=== PATIENT | female | born 1980 | race Caucasian/White ===

== ENCOUNTER 2016-12-26 15:36 | Emergency (ER) | payer MEDICAID ==
[~2016-12-26] VITALS: Ht 157.5 cm; Wt 60.0 kg
[~2016-12-26 15:36] MED LIST: METH40TA PO; ZOFR4TAB3 SL
[2016-12-26 15:47] VITALS: BP 134/86; PULSE 80; RESP 24; TEMP 98.1; O2SAT 100
--- NOTE | 2016-12-26 16:01 | PD ---
Physical Exam Time Seen by Provider: 15:58 Narrative 36yo F c/o N, V, D after quitting methadone cold turkey 10 days ago. Has not slept in 5 days. Says she''ll be having thoughts of suicide if she doesn't get better. Also is c/o SOB. Hx of COPD. Denies chest pain, abd pain. Patient seen in triage. VS reviewed. Awaiting bed placement. Data Data Last Documented VS Vital Signs Date Time Temp Pulse Resp B/P Pulse Ox O2 Delivery O2 Flow Rate FiO2 12/26/16 15:47 98.1 80 24 134/86 100 Room Air MDM Supervised Visit with JESUS: Jacey Au December 26, 2016 16:01
== END 2016-12-26 17:52 | disposition left against medical advice (07) ==
LOC: NEDAMB 15:36
DX: R11.2 Nausea with vomiting, unspecified (principal)
CPT/HCPCS: 99281

== ENCOUNTER 2017-03-20 20:40 | Emergency (ER) | payer SELFPAY ==
[~2017-03-20] VITALS: Ht 157.5 cm; Wt 65.0 kg
[2017-03-20 20:43] VITALS: BP 173/97; PULSE 108; RESP 18; TEMP 97.5; O2SAT 97
[2017-03-20 22:02] VITALS: BP 192/111; PULSE 95; RESP 18; TEMP 98.6; O2SAT 100
[2017-03-20] MEDS ORDERED: SODIUM CHLOR 0.9% 1000 ML INJ 1,000 ML IV ONE (22:13)
[2017-03-20] MEDS ORDERED: ONDANSETRON HCL 4 MG/2 ML VIAL IVP ONE (22:15)
[2017-03-20] MEDS ORDERED: KETOROLAC TROMETHAMINE 30 MG/ML (IVP) VIAL IV PUSH ONE (22:15)
[2017-03-20] MEDS ORDERED: cefTRIAXone 250 MG VIAL IM ONE (22:15)
[2017-03-20] MEDS ORDERED: LIDOCAINE HCL 1% 50 ML VIAL IM ONE (22:15)
--- NOTE | 2017-03-20 22:28 | PD ---
HPI Chief Complaint: Abdominal Pain Time Seen by Provider: 22:06 Travel History International Travel<30 days: No Contact w/Intl Traveler<30days: No Traveled to known affect area: No History of Present Illness HPI A 36 year old female with an LMP of 03/16/17 presents to the emergency department for discharge and abdominal pain. The discharge started 5 days ago and is described as malodorous, thick, yellow, and cloudy. Approximately 3 days ago she began having lower abdominal pain and lower back pain. The pain is an 8/10 and is described as "labor pains". She tried some NSAID's which helped relieve the pain for a little but came in because it has gotten worse. She recently had unprotected sex. She denies fever, dysuria, urinary urgency or frequency, change in stool, or hematuria. She takes no medications and denies any medical problems. She smokes 1 pack a day and drinks occasionally. History Past Medical History Narrative Medical hx of Chlamydia 19 years ago LMP: 03/16/17 Menopausal: No : 10 Para: 7 Dilation and Curettage (D&C): Yes Past Surgical History Narrative Surgical cholecystectomy tubal ligation Social History Alcohol Use: Yes Tobacco Use: Yes (1 PPD) Allergies-Medications (Allergen,Severity, Reaction): Coded Allergies: adhesive (Unverified Adverse Reaction, Unknown, PT STATES NOT TRUE, ) Reported Meds & Prescriptions Reported Meds & Active Scripts Active No Active Prescriptions or Reported Medications Review of Systems General / Constitutional: No: Fever, Chills Cardiovascular: No: Chest Pain or Discomfort Respiratory: No: Shortness of Breath Gastrointestinal: Positive: Abdominal Pain, No: Nausea, Vomiting, Diarrhea, Changes in Bowel Habits Genitourinary: Positive: Pelvic Pain, Flank Pain, Discharge (thick and yellow) , No: Urgency, Frequency, Dysuria, Hematuria Physical Exam Narrative GENERAL: Well-nourished, well-developed patient. SKIN: Warm and dry. HEAD: Normocephalic. EYES: No scleral icterus. No injection or drainage. NECK: Supple, trachea midline. No JVD or lymphadenopathy. CARDIOVASCULAR: Regular rate and rhythm without murmurs, gallops, or rubs. RESPIRATORY: Breath sounds equal bilaterally. No accessory muscle use. GASTROINTESTINAL: Abdomen soft, minimal suprapubic tenderness. MUSCULOSKELETAL: No cyanosis, or edema. Abdominal: suprapubic tenderness, no rebound tenderness, no RLQ or RUQ tenderness BACK: Nontender without obvious deformity. Bilateral CVA tenderness Pelvic: External examination was unremarkable. Speculum examination reveals thick yellow to green vaginal discharge in the vaginal vault. Cervix is closed. No cervical motion tenderness. No adnexal tenderness. Data Data Last Documented VS Vital Signs Date Time Temp Pulse Resp B/P (MAP) Pulse Ox O2 Delivery O2 Flow Rate FiO2 03/20/17 22:02 98.6 95 18 192/111 (138) 100 Room Air Orders Orders Gc And Chlamydia Pcr (03/20/17 22:13) Wet Prep Profile (03/20/17 22:13) Urinalysis - C+S If Indicated (03/20/17 22:13) Sodium Chlor 0.9% 1000 Ml Inj (Ns 1000 M (03/20/17 22:13) Ondansetron Inj (Zofran Inj) (03/20/17 22:15) Ceftriaxone Inj (Rocephin Inj) (03/20/17 22:15) Lidocaine 1% Inj (50 Ml) (Xylocaine 1% I (03/20/17 22:15) Ketorolac Inj (Toradol Inj) (03/20/17 22:15) Ed Urine Pregnancytest Poc (03/20/17 22:16) Morphine Inj (Morphine Inj) (03/20/17 23:00) Azithromycin Powd Pack (Zithromax Powd P (03/20/17 23:15) Labs Laboratory Tests Test 03/20/17 22:30 03/20/17 22:40 Urine Color YELLOW Urine Turbidity HAZY Urine pH 5.5 Urine Specific [place] 1.018 Urine Protein NEG mg/dL Urine Glucose (UA) NEG mg/dL Urine Ketones NEG mg/dL Urine Occult Blood NEG Urine Nitrite NEG Urine Bilirubin NEG Urine Urobilinogen 2.0 MG/DL Urine Leukocyte Esterase LARGE Urine RBC 9 /hpf Urine WBC 8 /hpf Urine Squamous Epithelial Cells 3 /hpf Urine Amorphous Sediment RARE Urine Bacteria RARE /hpf Urine Mucus FEW /lpf Microscopic Urinalysis Comment CULT NOT INDICATED Clue Cells (Wet Prep) PRESENT Vaginal Trichomonas (Wet Prep) NONE SEEN Vaginal Yeast (Wet Prep) NONE SEEN MDM Medical Decision Making Medical Screen Exam Complete: Yes Emergency Medical Condition: Yes Medical Record Reviewed: Yes Interpretation(s) Laboratory Tests Test 03/20/17 22:30 03/20/17 22:40 Urine Color YELLOW Urine Turbidity HAZY Urine pH 5.5 Urine Specific [place] 1.018 Urine Protein NEG mg/dL Urine Glucose (UA) NEG mg/dL Urine Ketones NEG mg/dL Urine Occult Blood NEG Urine Nitrite NEG Urine Bilirubin NEG Urine Urobilinogen 2.0 MG/DL Urine Leukocyte Esterase LARGE Urine RBC 9 /hpf Urine WBC 8 /hpf Urine Squamous Epithelial Cells 3 /hpf Urine Amorphous Sediment RARE Urine Bacteria RARE /hpf Urine Mucus FEW /lpf Microscopic Urinalysis Comment CULT NOT INDICATED Clue Cells (Wet Prep) PRESENT Vaginal Trichomonas (Wet Prep) NONE SEEN Vaginal Yeast (Wet Prep) NONE SEEN Differential Diagnosis pelvic inflammatory disease, trichomonas, gonorrhea, chlamydia, nephrolithiasis , pyelonephritis, urinary tract infection Narrative Course UA was sent to lab and bedside UA test was obtained, was negative. UA is unremarkable. Wet prep is positive for clue cells consistent with bacterial vaginosis. The patient was covered with Rocephin 250 mg IM and Zithromax 1 g by mouth. The patient will be discharged home on Flagyl 500 mg twice a day. She is advised to follow-up with a primary physician. Diagnosis Primary Impression: Bacterial vaginosis Patient Instructions: General Instructions Additional Instructions: Medications as directed. Follow-up with your primary physician. Return if symptoms worsen or progress. No drinking alcohol while on Flagyl. Med/Other Pt SpecificInfo: Prescription(s) given Scripts Metronidazole (Flagyl) 500 Mg Tab 500 MG PO BID for Infection for 7 Days, TAB 0 Refills Prov: Sukhdeep Rojas MD 03/20/17 Disposition: 01 DISCHARGE HOME Condition: Stable Sukhdeep Rojas MD Mar 20, 2017 22:28
[2017-03-20 22:52] LABS: BACTERIA, URINE RARE /hpf; BLOOD, URINE NEG (NEG); COMMENT (UR) CULT NOT INDICATED; CULTURE IF INDICATED CULT NOT INDICATED; GLUCOSE,URINE NEG (NEG); KETONE, URINE NEG (NEG); MUCUS URINE FEW /lpf (OCC); NITRITE,URINE NEG (NEG); PH, URINE 5.5 (5.0-8.5); SQUAMOUS EPITHELIAL CELL URINE 3 /hpf (0-5); URINE COLOR YELLOW (YELLW/STRAW)
[2017-03-20] MEDS ORDERED: MORPHINE SULFATE 4 MG/ML INJ IV PUSH ONE (23:00)
[2017-03-20] MEDS ORDERED: AZITHROMYCIN PWD FOR SUSP 1 GM PACKET PO ONE (23:15)
[2017-03-20] MEDS ORDERED: METR-1 PO (23:19)
[2017-03-21 00:49] LABS: CHLAMYDIA PCR NOT DETECTED (NOT DETECT); NEISSERIA PCR DETECTED (NOT DETECT)
== END 2017-03-21 00:06 | disposition home or self-care (01) ==
LOC: NEPE 20:40
DX: N76.0 Acute vaginitis (principal); F17.210 Nicotine dependence, cigarettes, uncomplicated
CPT/HCPCS: 81001; 87210; 87491; 87591; 96372; 96374; 96375; 99284; J0696; J1885; J2270; J2405; J7030

== ENCOUNTER 2017-06-27 00:35 | Emergency (ER) | payer SELFPAY ==
[~2017-06-27 00:35] MED LIST changes: -METH40TA PO; +METR-1 PO; -ZOFR4TAB3 SL
[2017-06-27 00:36] VITALS: BP 150/89; PULSE 121; RESP 15; TEMP 98.1; O2SAT 100
== END 2017-06-27 02:15 | disposition left against medical advice (07) ==
LOC: NEPC 00:35
DX: Z04.8 Encounter for examination and observation for other specified reasons (principal)
CPT/HCPCS: 99281

== ENCOUNTER 2017-08-21 17:05 | Inpatient (IN) | payer MEDICAID ==
[~2017-08-21] VITALS: Ht 157.5 cm; Wt 56.8 kg
[2017-08-21 17:07] VITALS: BP 192/137; PULSE 96; RESP 14; TEMP 98.1; O2SAT 100
--- NOTE | 2017-08-21 17:43 | RADRPT ---
EXAM DATE/TIME: 08/21/2017 17:25 [facility] COMPARISON: No previous studies available for comparison. INDICATIONS : Right wrist pain after patient punched a window 3 days ago MEDICAL HISTORY : None. SURGICAL HISTORY : Prior fracture to 5th metacarpal ENCOUNTER: Initial ACUITY: 3 days PAIN SCORE: 5/10 LOCATION: Right entire wrist FINDINGS: Three view examination of the right wrist demonstrates no soft tissue swelling, dislocation, or fract ure. The carpal bones are in normal alignment. The joint spaces are maintained. Bony mineralizatio n is normal. CONCLUSION: Negative for fracture or dislocation. Follow up in 7-10 days is suggested if symptoms persist. Tino Quinones MD FACR on August 21, 2017 at 17:40 Board Certified Radiologist. This report was verified electronically.
--- NOTE | 2017-08-21 17:44 | RADRPT ---
EXAM DATE/TIME: 08/21/2017 17:26 [facility] COMPARISON: No previous studies available for comparison. INDICATIONS : Laceration, swelling to to right forearm after patient punched a window 3 days ago MEDICAL HISTORY : None. SURGICAL HISTORY : None. ENCOUNTER: Initial ACUITY: 3 days PAIN SCORE: 10/10 LOCATION: Right mis-shaft forearm FINDINGS: Soft tissue swelling and laceration. Small radiopacity is present distal end of the swelling probabl y glass. Fracture is not appreciated. CONCLUSION: Retained foreign body as above. Tino Quinones MD FACR on August 21, 2017 at 17:41 Board Certified Radiologist. This report was verified electronically.
[2017-08-21 18:04] LABS: AUTOMATED NEUTROPHIL # 12.7 TH/MM3 (1.8-7.7); BASOPHIL # 0.1 TH/MM3 (0-0.2); BASOPHIL % 0.5 % (0.0-2.0); EOSINOPHIL # 0.1 TH/MM3 (0-0.4); EOSINOPHIL % 0.8 % (0.0-4.0); HEMATOCRIT 46.9 % (35.0-46.0); HEMOGLOBIN 15.9 GM/DL (11.6-15.3); LYMPH % 14.3 % (9.0-44.0); LYMPHOCYTE # 2.3 TH/MM3 (1.0-4.8); MEAN CELL VOLUME 94.7 FL (80.0-100.0); MEAN CORPUSCULAR HGB CONC 33.8 % (32.0-36.0); MEAN PLATELET VOLUME 9.1 FL (7.0-11.0); MONO % 5.2 % (0.0-8.0); MONOCYTE # 0.8 TH/MM3 (0-0.9); NEUT % 79.2 % (16.0-70.0); PLATELET COUNT 276 TH/MM3 (150-450); RED BLOOD COUNT 4.95 MIL/MM3 (4.00-5.30); RED CELL DISTRIBUTION WIDTH 13.2 % (11.6-17.2); WHITE BLOOD COUNT 16.1 TH/MM3 (4.0-11.0)
[2017-08-21 18:22] LABS: BICARBONATE 24.8 MEQ/L (21.0-32.0); CREATININE 0.76 MG/DL (0.50-1.00)
--- NOTE | 2017-08-21 18:27 | PD ---
HPI Chief Complaint: Skin Problem Time Seen by Provider: 18:17 Travel History International Travel<30 days: No Contact w/Intl Traveler<30days: No Traveled to known affect area: No History of Present Illness HPI 37yo F with no significant PMH presents to the ED with c/o right arm pain and swelling since yesterday. Said she punched her right arm through the window 5 days ago and did not seek medical care. Said pain was just localized to the laceration initially. Denies any fever, chest pain, sob, n/v, abdominal pain, focal weakness or numbness. PFSH Past Medical History Hx Anticoagulant Therapy: No Arthritis: No Asthma: No Autoimmune Disease: No Blood Disorders: No Bipolar Disorder: Yes Anxiety: Yes Depression: Yes Heart Rhythm Problems: No Cancer: No Cardiovascular Problems: No High Cholesterol: No Chemotherapy: No Chest Pain: No Congestive Heart Failure: No COPD: Yes Cerebrovascular Accident: No Diabetes: No Diminished Hearing: No Endocrine: No Gastrointestinal Disorders: Yes GERD: No Glaucoma: No Genitourinary: No Headaches: No Hepatitis: No Hiatal Hernia: No Immune Disorder: No Implanted Vascular Access Dvce: No Kidney Stones: No Musculoskeletal: No Neurologic: No Psychiatric: Yes Reproductive: Yes Respiratory: Yes (COPD) Migraines: No Myocardial Infarction: No Radiation Therapy: No Renal Failure: No Seizures: No Sickle Cell Disease: No Sleep Apnea: No Thyroid Disease: No Ulcer: No ?: Not LMP: 08/07/2017 Menopausal: No : 10 Para: 7 Miscarriage: 1 : 1 Dilation and Curettage (D&C): Yes Tubal Ligation: Yes Past Surgical History Abdominal Surgery: Yes AICD: No Appendectomy: No Arteriovenous Shunt: No Cardiac Surgery: No Cholecystectomy: Yes Ear Surgery: No Endocrine Surgery: No Eye Surgery: No Genitourinary Surgery: No Gynecologic Surgery: Yes (D&C AFTER MISCARRIAGE) Insulin Pump: No Joint Replacement: No Neurologic Surgery: No Oral Surgery: No Pacemaker: No Thoracic Surgery: No Other Surgery: Yes Social History Alcohol Use: Yes ("OCCASIONALLY") Tobacco Use: Yes (1 PPD) Substance Use: Yes (MARIJUANA) Allergies-Medications (Allergen,Severity, Reaction): Coded Allergies: adhesive (Unverified Adverse Reaction, Unknown, PT STATES NOT TRUE, ) Reported Meds & Prescriptions Reported Meds & Active Scripts Active No Active Prescriptions or Reported Medications Review of Systems Except as stated in HPI: all other systems reviewed are Neg Physical Exam Narrative GENERAL: 37yo F in moderate distress. SKIN: Focused skin assessment warm/dry. HEAD: Atraumatic. Normocephalic. CARDIOVASCULAR: Regular rate and rhythm. No murmur appreciated. RESPIRATORY: No accessory muscle use. Clear to auscultation. Breath sounds equal bilaterally. GASTROINTESTINAL: Abdomen soft, non-tender, nondistended. MUSCULOSKELETAL: RUE: +3cm that is healed mid forearm with surrounding edema and erythema. Tender to touch until below elbow. Sensation intact. +TTP right fifth metacarpal joint with some ecchymoses. NEUROLOGICAL: Awake and alert. No obvious cranial nerve deficits. Motor grossly within normal limits. Normal speech. PSYCHIATRIC: Appropriate mood and affect; insight and judgment normal. Data Data Last Documented VS Vital Signs Date Time Temp Pulse Resp B/P (MAP) Pulse Ox O2 Delivery O2 Flow Rate FiO2 08/21/17 19:13 82 20 175/94 (121) 100 Room Air 08/21/17 17:07 98.1 Orders Orders Complete Blood Count With Diff (08/21/17 17:13) Basic Metabolic Panel (Bmp) (08/21/17 17:13) Forearm (2vws) (08/21/17 ) Wrist, Complete ([id number]) (08/21/17 ) Blood Culture (08/21/17 18:23) Lactic Acid Sepsis Protocol (08/21/17 18:23) Us Soft Tissue (08/21/17 ) Hand, Limited (2vws) (08/21/17 ) Ketorolac Inj (Toradol Inj) (08/21/17 18:30) Clindamycin Inj (Cleocin Inj) (08/21/17 18:30) Sodium Chlor 0.9% 1000 Ml Inj (Ns 1000 M (08/21/17 18:30) Clindamycin 600 Mg/Ns Premix (Cleocin 60 (08/21/17 18:45) Labs Laboratory Tests Test 08/21/17 17:20 08/21/17 20:00 White Blood Count 16.1 TH/MM3 Red Blood Count 4.95 MIL/MM3 Hemoglobin 15.9 GM/DL Hematocrit 46.9 % Mean Corpuscular Volume 94.7 FL Mean Corpuscular Hemoglobin 32.0 PG Mean Corpuscular Hemoglobin Concent 33.8 % Red Cell Distribution Width 13.2 % Platelet Count 276 TH/MM3 Mean Platelet Volume 9.1 FL Neutrophils (%) (Auto) 79.2 % Lymphocytes (%) (Auto) 14.3 % Monocytes (%) (Auto) 5.2 % Eosinophils (%) (Auto) 0.8 % Basophils (%) (Auto) 0.5 % Neutrophils # (Auto) 12.7 TH/MM3 Lymphocytes # (Auto) 2.3 TH/MM3 Monocytes # (Auto) 0.8 TH/MM3 Eosinophils # (Auto) 0.1 TH/MM3 Basophils # (Auto) 0.1 TH/MM3 CBC Comment DIFF FINAL Differential Comment Blood Urea Nitrogen 9 MG/DL Creatinine 0.76 MG/DL Random Glucose 90 MG/DL Calcium Level 9.0 MG/DL Sodium Level 141 MEQ/L Potassium Level 4.3 MEQ/L Chloride Level 109 MEQ/L Carbon Dioxide Level 24.8 MEQ/L Anion Gap 7 MEQ/L Estimat Glomerular Filtration Rate 87 ML/MIN Lactic Acid Level 0.9 mmol/L [facility] Medical Decision Making Medical Screen Exam Complete: Yes Emergency Medical Condition: Yes Differential Diagnosis Abscess vs. foreign body retention vs. fracture vs. sepsis secondary to cellulitis Narrative Course 37yo F with right forearm pain and swelling since yesterday after punching her hand through the window 5 days ago. Labs reviewed, leukocytosis at 16.1. Lactic acid normal. Xray right hand negative. Xray right forearm showed small radiopacity distal end of the swelling probably glass. US soft tissue showed 13mm phlegmonous mass with probable early abscess formation. Xray right wrist negative. Pt given clindamycin, NS IVF and toradol. Pt reevaluate and still in pain so will give morphine. Discussed with Dr. López and accepted to her service. Diagnosis Primary Impression: Abscess of forearm, right Admitting Information Admitting Physician Requests: Admit Scripts No Active Prescriptions or Reported Meds Shannan Westfall DO Aug 21, 2017 18:27
[2017-08-21] MEDS ORDERED: KETOROLAC TROMETHAMINE 30 MG/ML (IVP) VIAL IV PUSH ONE (18:30)
[2017-08-21] MEDS ORDERED: CLINDAMYCIN INJ 600 MG in SODIUM CHLORIDE 0.9% INJ 100 ML IV ONE (18:30)
[2017-08-21] MEDS ORDERED: SODIUM CHLOR 0.9% 1000 ML INJ 1,000 ML IV ONE (18:30)
[2017-08-21] MEDS ORDERED: CLINDAMYCIN 600 MG/NS PREMIX 50 ML IV ONE (18:45)
--- NOTE | 2017-08-21 19:10 | RADRPT ---
EXAM DATE/TIME: 08/21/2017 18:37 [facility] COMPARISON: No previous studies available for comparison. INDICATIONS : Right hand pain after punching window 3 days ago MEDICAL HISTORY : Previous right 5th metacarpal fracture SURGICAL HISTORY : None. ENCOUNTER: Initial ACUITY: 3 days PAIN SCORE: 10/10 LOCATION: Right entire hand FINDINGS: Two view examination of the right hand demonstrates no soft tissue swelling, dislocation, or fracture . The joint spaces are maintained. Bony mineralization is normal. CONCLUSION: 1. No acute bony abnormality. Pablito Lucas MD on August 21, 2017 at 19:06 Board Certified Radiologist. This report was verified electronically.
[2017-08-21 19:13] VITALS: BP 175/94; PULSE 82; RESP 20; O2SAT 100
--- NOTE | 2017-08-21 20:17 | RADRPT ---
EXAM DATE/TIME: 08/21/2017 19:21 [facility] COMPARISON: No previous studies available for comparison. INDICATIONS : Right forearm, abscess. MEDICAL HISTORY : Chronic obstructive pulmonary disease. Hypertension. SURGICAL HISTORY : Tubal ligation. Cholecystectomy. Dilation and curettage. ENCOUNTER: Initial ACUITY: 4-6 days PAIN SCORE: 3/10 LOCATION: Right arm. AREA EVALUATED: Right forearm. FINDINGS: There is an approximately 13 mm phlegmonous mass in the right medial mid forearm with some fluid most characteristic of early abscess formation with surrounding cellulitis. CONCLUSION: 1. 13 mm phlegmonous mass with probable early abscess formation. Pablito Lucas MD on August 21, 2017 at 20:14 Board Certified Radiologist. This report was verified electronically.
[2017-08-21] MEDS ORDERED: MORPHINE SULFATE 2 MG/ML INJ IV PUSH ONE (21:00)
[2017-08-21] MEDS ORDERED: ACETAMINOPHEN 325 MG TAB PO PRN (21:15)
[2017-08-21] MEDS ORDERED: RESP: ALBUTEROL 2.5 MG/IPRATROPIUM 0.5 MG NEB (PRN) NEB (21:15)
[2017-08-21] MEDS ORDERED: SODIUM CHLORIDE 0.9% FLUSH 10 ML FLUSH IV FLUSH PRN (21:15)
[2017-08-21] MEDS ORDERED: NALOXONE HCL 0.4 MG/ML AMP IV PUSH PRN (21:15)
[2017-08-21] MEDS ORDERED: ONDANSETRON HCL 4 MG/2 ML VIAL IVP PRN (21:15)
[2017-08-22 00:03] VITALS: BP 169/83; PULSE 86; RESP 18; TEMP 97.8; O2SAT 100
[2017-08-22] MEDS: MORPHINE SULFATE 2 MG/ML INJ IV PUSH PRN ×6 (00:07→16:32)
--- NOTE | 2017-08-22 01:33 | HHI.HP ---
[facility] No Primary Care Physician Admission Diagnosis Right forearm abscess Diagnoses: Travel History International Travel<30 Days: No Contact w/Intl Traveler <30 Da: No Traveled to Known Affected Are: No History of Present Illness 37-year-old female presents to the emergency department for evaluation of a right forearm laceration and swelling. The patient reports that approximately 5 days ago she put her hand through a window. She sustained a 3 cm laceration on the right forearm and did not seek medical attention. She reports that she had increasing pain and swelling that began 2 days ago. The pain worsened to the point where it became unbearable and she came to the emergency department for evaluation. She endorses a subjective low-grade fever for the past 2 days. She reports no drainage from the wound. Review of Systems Positive subjective fevers Denies blurry vision, otorrhea, rhinorrhea Denies sore throat and cough No chest pain, palpitations No shortness of breath or wheezing No abdominal pain Denies constipation/diarrhea/nausea/vomiting Denies muscle pain Denies focal weakness No rashes Past Family Social History Past Medical History None Past Surgical History Cholecystectomy BTL Frenulum release D&C Reported Medications Reported Meds & Active Scripts Active No Active Prescriptions or Reported Medications Allergies: Coded Allergies: adhesive (Unverified Adverse Reaction, Unknown, PT STATES NOT TRUE, ) Family History Negative for CAD/DM Social History Smokes approximately one pack per day. Occasional alcohol and marijuana use. Denies other illicit drugs. Physical Exam Vital Signs Vital Signs Date Time Temp Pulse Resp B/P (MAP) Pulse Ox O2 Delivery O2 Flow Rate FiO2 08/22/17 00:03 97.8 86 18 169/83 (111) 100 08/21/17 21:50 08/21/17 19:13 82 20 175/94 (121) 100 Room Air 08/21/17 17:07 98.1 96 14 192/137 (155) 100 Physical Exam GENERAL: female sitting up in bed SKIN: 3 cm laceration on the lateral aspect of the right forearm with surrounding erythema and edema. No fluctuance palpated. HEAD: Atraumatic. Normocephalic. No temporal or scalp tenderness. EYES: Pupils equal round and reactive. Extraocular motions intact. No scleral icterus. No injection or drainage. ENT: Nose without bleeding, purulent drainage or septal hematoma. Throat without erythema, tonsillar hypertrophy or exudate. Uvula midline. Airway patent. NECK: Trachea midline. No JVD or lymphadenopathy. Supple, nontender, no meningeal signs. CARDIOVASCULAR: Regular rate and rhythm without murmurs, gallops, or rubs. RESPIRATORY: Clear to auscultation. Breath sounds equal bilaterally. No wheezes , rales, or rhonchi. GASTROINTESTINAL: Abdomen soft, non-tender, nondistended. No hepato-splenomegaly , or palpable masses. No guarding. MUSCULOSKELETAL: Extremities without clubbing, cyanosis, or edema. No joint tenderness, effusion, or edema noted. No calf tenderness. NEUROLOGICAL: Awake and alert. Cranial nerves II through XII intact. Motor and sensory grossly within normal limits. Normal speech. Laboratory Laboratory Tests Test 08/21/17 17:20 08/21/17 20:00 White Blood Count 16.1 Red Blood Count 4.95 Hemoglobin 15.9 Hematocrit 46.9 Mean Corpuscular Volume 94.7 Mean Corpuscular Hemoglobin 32.0 Mean Corpuscular Hemoglobin Concent 33.8 Red Cell Distribution Width 13.2 Platelet Count 276 Mean Platelet Volume 9.1 Neutrophils (%) (Auto) 79.2 Lymphocytes (%) (Auto) 14.3 Monocytes (%) (Auto) 5.2 Eosinophils (%) (Auto) 0.8 Basophils (%) (Auto) 0.5 Neutrophils # (Auto) 12.7 Lymphocytes # (Auto) 2.3 Monocytes # (Auto) 0.8 Eosinophils # (Auto) 0.1 Basophils # (Auto) 0.1 CBC Comment DIFF FINAL Differential Comment Blood Urea Nitrogen 9 Creatinine 0.76 Random Glucose 90 Calcium Level 9.0 Sodium Level 141 Potassium Level 4.3 Chloride Level 109 Carbon Dioxide Level 24.8 Anion Gap 7 Estimat Glomerular Filtration Rate 87 Lactic Acid Level 0.9 Date/Time Source Procedure Growth Status 08/21/17 19:42 Blood Peripheral Aerobic Blood Culture Pending Received 08/21/17 19:42 Blood Peripheral Anaerobic Blood Culture Pending Received Result Diagram: 08/21/17 1720 08/21/17 1720 Caprini VTE Risk Assessment Caprini VTE Risk Assessment: No/Low Risk (score <= 1) Caprini Risk Assessment Model Point Value = 1 Point Value = 2 Point Value = 3 Point Value = 5 Age 41-60 Minor surgery BMI > 25 kg/m2 Swollen legs Varicose veins or History of unexplained or recurrent spontaneous Oral contraceptives or hormone replacement Sepsis (< 1 month) Serious lung disease, including pneumonia (< 1 month) Abnormal pulmonary function Acute myocardial infarction Congestive heart failure (< 1 month) History of inflammatory bowel disease Medical patient at bed rest Age 61-74 Arthroscopic surgery Major open surgery (> 45 min) Laparoscopic surgery (> 45 min) Malignancy Confined to bed (> 72 hours) Immobilizing plaster cast Central venous access Age >= 75 History of VTE Family history of VTE Factor V Leiden Prothrombin [id number] Lupus anticoagulant Anticardiolipin antibodies Elevated serum homocysteine Heparin-induced thrombocytopenia Other congenital or acquired thrombophilia Stroke (< 1 month) Elective arthroplasty Hip, pelvis, or leg fracture Acute spinal cord injury (< 1 month) Prophylaxis Regimen Total Risk Factor Score Risk Level Prophylaxis Regimen 0-1 Low Early ambulation 2 Moderate Order ONE of the following: *Sequential Compression Device (SCD) *Heparin 5000 units SQ BID 3-4 Higher Order ONE of the following medications: *Heparin 5000 units SQ TID *Enoxaparin/Lovenox 40 mg SQ daily (WT < 150 kg, CrCl > 30 mL/min) *Enoxaparin/Lovenox 30 mg SQ daily (WT < 150 kg, CrCl > 10-29 mL/min) *Enoxaparin/Lovenox 30 mg SQ BID (WT < 150 kg, CrCl > 30 mL/min) AND/OR *Sequential Compression Device (SCD) 5 or more Highest Order ONE of the following medications: *Heparin 5000 units SQ TID (Preferred with Epidurals) *Enoxaparin/Lovenox 40 mg SQ daily (WT < 150 kg, CrCl > 30 mL/min) *Enoxaparin/Lovenox 30 mg SQ daily (WT < 150 kg, CrCl > 10-29 mL/min) *Enoxaparin/Lovenox 30 mg SQ BID (WT < 150 kg, CrCl > 30 mL/min) AND *Sequential Compression Device (SCD) Assessment and Plan Assessment and Plan Assessment/plan: 1. Right upper extremity cellulitis Ultrasound significant for 13 mm phlegmonous mass concerning for early abscess formation X-ray of the forearm shows soft tissue swelling and laceration with a small radiopacity in the distal end which is probably glass Clindamycin Blood cultures pending Hand surgery consulted, appreciate recommendations FEN NPO Electrolytes: monitor and replete Shazia Jeff MD Aug 22, 2017 01:33
[2017-08-22] MEDS: CLINDAMYCIN 600 MG/NS PREMIX 50 ML IV SCH ×3 (02:44→13:58)
[2017-08-22 03:21] VITALS: BP 131/79; PULSE 78; TEMP 96.4; O2SAT 99
[2017-08-22 05:22] LABS: BASOPHIL # 0.1 TH/MM3 (0-0.2); BASOPHIL % 0.7 % (0.0-2.0); EOSINOPHIL # 0.2 TH/MM3 (0-0.4); EOSINOPHIL % 1.8 % (0.0-4.0); HEMATOCRIT 37.7 % (35.0-46.0); HEMOGLOBIN 12.8 GM/DL (11.6-15.3); LYMPH % 24.5 % (9.0-44.0); LYMPHOCYTE # 2.2 TH/MM3 (1.0-4.8); MEAN CELL VOLUME 94.6 FL (80.0-100.0); MEAN CORPUSCULAR HEMOGLOBIN 32.2 PG (27.0-34.0); MEAN PLATELET VOLUME 9.2 FL (7.0-11.0); MONO % 6.9 % (0.0-8.0); MONOCYTE # 0.6 TH/MM3 (0-0.9); NEUT % 66.1 % (16.0-70.0); PLATELET COUNT 219 TH/MM3 (150-450); RED BLOOD COUNT 3.99 MIL/MM3 (4.00-5.30); RED CELL DISTRIBUTION WIDTH 13.4 % (11.6-17.2); WHITE BLOOD COUNT 9.1 TH/MM3 (4.0-11.0)
[2017-08-22 05:48] LABS: BICARBONATE 22.9 MEQ/L (21.0-32.0); CALCIUM 8.1 MG/DL (8.5-10.1); CREATININE 0.65 MG/DL (0.50-1.00)
[2017-08-22 07:44] VITALS: BP 125/56; PULSE 73; RESP 18; TEMP 98; O2SAT 97
--- NOTE | 2017-08-22 08:06 | HHI.PR ---
Subjective Remarks Follow-up right forearm abscess. Complaining of pain management with current medications. Currently nothing by mouth. Discussed with RN Objective Vitals Vital Signs Date Time Temp Pulse Resp B/P (MAP) Pulse Ox O2 Delivery O2 Flow Rate FiO2 08/22/17 07:44 98.0 73 18 125/56 (79) 97 08/22/17 03:21 96.4 78 131/79 (96) 99 08/22/17 00:03 97.8 86 18 169/83 (111) 100 08/21/17 21:50 08/21/17 19:13 82 20 175/94 (121) 100 Room Air 08/21/17 17:07 98.1 96 14 192/137 (155) 100 I/O 08/21/17 08/21/17 08/21/17 08/22/17 08/22/17 08/22/17 07:00 15:00 23:00 07:00 15:00 23:00 Intake Total 1050 ml 50 ml Balance 1050 ml 50 ml Intake IV Total 1050 ml 50 ml # Voids 2 Result Diagram: 08/22/17 0438 08/22/17 0438 Imaging Last Impressions Wrist X-Ray 08/21/17 0000 Signed Impressions: Service Date/Time: Monday, August 21, 2017 17:25 - CONCLUSION: Negative for fracture or dislocation. Follow up in 7-10 days is suggested if symptoms persist. Tino Quinones MD FACR Soft Tissue Ultrasound 08/21/17 0000 Signed Impressions: Service Date/Time: Monday, August 21, 2017 19:21 - CONCLUSION: 1. 13 mm phlegmonous mass with probable early abscess formation. Pablito Lucas MD Radius/Ulna X-Ray 08/21/17 0000 Signed Impressions: Service Date/Time: Monday, August 21, 2017 17:26 - CONCLUSION: Retained foreign body as above. Tino Quinones MD FACR Hand X-Ray 08/21/17 0000 Signed Impressions: Service Date/Time: Monday, August 21, 2017 18:37 - CONCLUSION: 1. No acute bony abnormality. Pablito Lucas MD Objective Remarks GENERAL: female sitting up in bed SKIN: 3 cm laceration on the lateral aspect of the right forearm with surrounding erythema and edema. No fluctuance palpated. CARDIOVASCULAR: Regular rate and rhythm without murmurs, gallops, or rubs. RESPIRATORY: Clear to auscultation. Breath sounds equal bilaterally. No wheezes , rales, or rhonchi. GASTROINTESTINAL: Abdomen soft, non-tender, nondistended. No guarding. MUSCULOSKELETAL: Extremities without clubbing, cyanosis, or edema. No joint tenderness, effusion, or edema noted. No calf tenderness. NEUROLOGICAL: Awake and alert. Cranial nerves II through XII intact. Motor and sensory grossly within normal limits. Normal speech. A/P Problem List: (1) Abscess of forearm, right ICD Code: L02.413 - Cutaneous abscess of right upper limb Status: Acute Assessment and Plan 1. Right upper extremity cellulitis/abscess with Sepsis Ultrasound significant for 13 mm phlegmonous mass concerning for early abscess formation X-ray of the forearm shows soft tissue swelling and laceration with a small radiopacity in the distal end which is probably glass Continue IV Clindamycin Pain management with IV morphine Blood cultures pending Hand surgery consulted, appreciate recommendations FEN NPO Electrolytes: monitor and replete prn Discharge Planning Not ready for discharge needing surgical intervention Danis Calle MD Aug 22, 2017 08:06
[2017-08-22] MEDS ORDERED: SODIUM CHLORIDE 0.9% FLUSH 10 ML FLUSH IV FLUSH SCH (09:00)
[2017-08-22 12:40] VITALS: BP 186/101; PULSE 72; RESP 19; TEMP 98; O2SAT 99
[2017-08-22] MEDS ORDERED: CIPR-9 PO (16:54)
[2017-08-22] MEDS ORDERED: CIPROFLOXACIN 500 MG TAB PO SCH (17:00)
[2017-08-22] MEDS ORDERED: NORC5TAB PO (17:29)
--- NOTE | 2017-08-22 21:31 | MB ---
cc: FARHAT HALLMAN MD DATE OF CONSULTATION 08/22/17 HISTORY OF PRESENT ILLNESS The patient is a 37-year [id number] female who put her right hand through a window five days ago. It became red, swollen, sore and painful and she came to the emergency room yesterday right forearm abscess. PAST MEDICAL HISTORY Denied. PAST SURGICAL HISTORY 1. Cholecystectomy 2. Bilateral tubal ligation. 3. Frenulum release 4. D&C. MEDICATIONS At home denied. ALLERGIES NO KNOWN DRUG ALLERGIES. REVIEW OF SYSTEMS Patient is not complaining of any double or blurry vision or bloody nose. She is not complaining of any coughing, wheezing or shortness breath. She is not complaining of any chest pain or palpitations. She is not complaining of any nausea, vomiting, or abdominal pain. She is not complaining of burning, frequency or urgency with urination. She is not complaining of any spine, neck or back pain. She is not complaining of any night sweats or chills, but she is complaining of fevers subjectively. She is not complaining of any anxiety, depression or suicidal ideation. She is not complaining of any weight loss or weight gain. She is not complaining of any skin lesions, rashes or eruptions. IMAGING STUDIES A series of x-rays were done. Wrist x-ray negative for fracture or dislocation. Soft tissue ultrasound - 13 mm phlegmonous mass with probable early abscess formation. Radius and ulna x-ray - Retained foreign body as above, no acute bony abnormality on the hand x-ray. PHYSICAL EXAMINATION GENERAL: A well-developed, well-nourished in no apparent distress. VITAL SIGNS: Temperature 98.0, heart rate 72, respiratory rate 19, blood pressure 186/101, pulse ox 99% on room Examination of right upper extremity - She has full active range of motion. She is neurovascularly intact throughout. There is a 1.5 cm very superficial laceration ulnarly. All flexor extensor musculotendinous units are intact. Sensation is fully intact. Capillary refill is less than 2 seconds in all fingertips. There is no erythema. There is no induration. There is no streaking. There is no drainage. There is no fluctuance. There is no cellulitis. She is awake, alert and oriented x3 and she is very pleasant. Her respiratory effort is normal. Pupils equal round reactive to light. Respiratory effort is normal. IMPRESSION Laceration right forearm, resolved cellulitis. PLAN My recommendation is to change to a better antibiotic so I have written an order for Cipro. I recommend soap and water and local wound care. No ointment, creams or lotions. The patient can be discharged from my standpoint without the need for followup. MD LAZARO Sullivan III/ /4:55 PM /9:03 PM
== END 2017-08-22 18:39 | disposition home or self-care (01) | DRG 872 ==
LOC: NEPD 17:05 → NEDA 20:55 → NEPFCDU 21:33
PROVIDERS: ADMIT Internal Medicine; ATTEND Internal Medicine
DX: A41.9 Sepsis, unspecified organism (principal); J44.9 Chronic obstructive pulmonary disease, unspecified; L02.413 Cutaneous abscess of right upper limb; L03.113 Cellulitis of right upper limb; S51.821A Laceration with foreign body of right forearm, initial encounter; F31.9 Bipolar disorder, unspecified; F41.9 Anxiety disorder, unspecified; F12.90 Cannabis use, unspecified, uncomplicated; F17.210 Nicotine dependence, cigarettes, uncomplicated; W25.XXXA Contact with sharp glass, initial encounter
CPT/HCPCS: 73090; 73110; 73120; 76999; 80048; 83605; 85025; 87040; 96365; 96375; J1885; J2270; J2405; J7030

== ENCOUNTER 2017-10-01 13:04 | Emergency (ER) | payer SELFPAY ==
[~2017-10-01] VITALS: Ht 157.5 cm; Wt 55.0 kg
[~2017-10-01 13:04] MED LIST changes: +CIPR-9 PO; -METR-1 PO; +NORC5TAB PO
[2017-10-01 13:08] VITALS: BP 139/58; PULSE 99; RESP 18; TEMP 98; O2SAT 99
[2017-10-01] MEDS ORDERED: SODIUM CHLOR 0.9% 1000 ML INJ 1,000 ML IV ONE (13:30)
[2017-10-01] MEDS ORDERED: PROCHLORPERAZINE INJ 10 MG/2 ML VIAL IV PUSH ONE (13:30)
[2017-10-01] MEDS ORDERED: KETOROLAC TROMETHAMINE 30 MG/ML (IVP) VIAL IV PUSH ONE (13:30)
--- NOTE | 2017-10-01 13:33 | PD ---
HPI Chief Complaint: GI Complaint Time Seen by Provider: 13:17 Travel History International Travel<30 days: No Contact w/Intl Traveler<30days: No Traveled to known affect area: No History of Present Illness HPI This 37-year-old female has been sick since last Saturday. She has been having vomiting and diarrhea. She is having a bifrontal headache. Thinks she has had occasional fever. There has been no dysuria. She is not prone to headaches. She does not have photophobia or any numbness. She is having some crampy midabdominal pain. She has a history of IV drug abuse but says she has not used for over 6 months. PFSH Past Medical History Hx Anticoagulant Therapy: No Arthritis: No Asthma: No Autoimmune Disease: No Blood Disorders: No Bipolar Disorder: Yes Anxiety: Yes Depression: No Heart Rhythm Problems: No Cancer: No Cardiovascular Problems: No High Cholesterol: No Chemotherapy: No Chest Pain: No Congestive Heart Failure: No COPD: Yes Cerebrovascular Accident: No Diabetes: No Diminished Hearing: No Endocrine: No Gastrointestinal Disorders: Yes GERD: No Glaucoma: No Genitourinary: No Headaches: No Hepatitis: No Hiatal Hernia: No Immune Disorder: No Implanted Vascular Access Dvce: No Kidney Stones: No Musculoskeletal: No Neurologic: No Psychiatric: Yes Reproductive: Yes Respiratory: Yes (COPD) Migraines: No Myocardial Infarction: No Radiation Therapy: No Renal Failure: No Seizures: No Sickle Cell Disease: No Sleep Apnea: No Thyroid Disease: No Ulcer: No Tetanus Vaccination: < 5 Years Influenza Vaccination: Yes ?: Not Menopausal: No : 10 Para: 7 Miscarriage: 1 : 1 Dilation and Curettage (D&C): Yes Tubal Ligation: Yes Past Surgical History Abdominal Surgery: Yes AICD: No Appendectomy: No Arteriovenous Shunt: No Cardiac Surgery: No Cholecystectomy: Yes Ear Surgery: No Endocrine Surgery: No Eye Surgery: No Genitourinary Surgery: No Gynecologic Surgery: Yes (D&C AFTER MISCARRIAGE) Insulin Pump: No Joint Replacement: No Neurologic Surgery: No Oral Surgery: No Pacemaker: No Thoracic Surgery: No Other Surgery: Yes Social History Alcohol Use: Yes ("OCCASIONALLY") Tobacco Use: Yes (1 PPD) Substance Use: No Allergies-Medications (Allergen,Severity, Reaction): Coded Allergies: adhesive (Unverified Adverse Reaction, Unknown, PT STATES NOT TRUE, 10/01/17 ) Reported Meds & Prescriptions Reported Meds & Active Scripts Active No Active Prescriptions or Reported Medications Review of Systems General / Constitutional: Positive: Fever, No: Chills Eyes: No: Diploplia, Blurred Vision HENT: No: Headaches, Vertigo Cardiovascular: No: Chest Pain or Discomfort Respiratory: No: Cough, Shortness of Breath Gastrointestinal: Positive: Nausea, Vomiting, Diarrhea, Abdominal Pain Genitourinary: No: Urgency Musculoskeletal: Positive: Myalgias, Arthralgias Skin: No Rash Neurologic: No: Weakness Hematologic/Lymphatic: No: Easy Bruising Physical Exam Narrative GENERAL: Well-developed female SKIN: Focused skin assessment warm/dry. HEAD: Atraumatic. Normocephalic. EYES: Pupils equal and round. No scleral icterus. No injection or drainage. ENT: No nasal bleeding or discharge. Mucous membranes pink and moist. NECK: Trachea midline. No JVD. CARDIOVASCULAR: Regular rate and rhythm. No murmur appreciated. RESPIRATORY: No accessory muscle use. Clear to auscultation. Breath sounds equal bilaterally. GASTROINTESTINAL: Abdomen soft, non-tender, nondistended. Hepatic and splenic margins not palpable. MUSCULOSKELETAL: No obvious deformities. No clubbing. No cyanosis. No edema. NEUROLOGICAL: Awake and alert. No obvious cranial nerve deficits. Motor grossly within normal limits. Normal speech. PSYCHIATRIC: Appropriate mood and affect; insight and judgment normal. Data Data Last Documented VS Vital Signs Date Time Temp Pulse Resp B/P (MAP) Pulse Ox O2 Delivery O2 Flow Rate FiO2 10/01/17 13:08 98.0 99 18 139/58 (85) 99 Orders Orders Ed Urine Pregnancytest Poc (10/01/17 13:21) Complete Blood Count With Diff (10/01/17 13:24) Comprehensive Metabolic Panel (10/01/17 13:24) Sodium Chlor 0.9% 1000 Ml Inj (Ns 1000 M (10/01/17 13:30) Prochlorperazine Inj (Compazine Inj) (10/01/17 13:30) Ketorolac Inj (Toradol Inj) (10/01/17 13:30) Labs Laboratory Tests Test 10/01/17 13:30 White Blood Count 6.3 TH/MM3 Red Blood Count 4.60 MIL/MM3 Hemoglobin 13.7 GM/DL Hematocrit 40.7 % Mean Corpuscular Volume 88.5 FL Mean Corpuscular Hemoglobin 29.7 PG Mean Corpuscular Hemoglobin Concent 33.6 % Red Cell Distribution Width 13.0 % Platelet Count 220 TH/MM3 Mean Platelet Volume 8.8 FL Neutrophils (%) (Auto) 67.1 % Lymphocytes (%) (Auto) 22.0 % Monocytes (%) (Auto) 8.5 % Eosinophils (%) (Auto) 1.8 % Basophils (%) (Auto) 0.6 % Neutrophils # (Auto) 4.3 TH/MM3 Lymphocytes # (Auto) 1.4 TH/MM3 Monocytes # (Auto) 0.5 TH/MM3 Eosinophils # (Auto) 0.1 TH/MM3 Basophils # (Auto) 0.0 TH/MM3 CBC Comment DIFF FINAL Differential Comment Blood Urea Nitrogen 6 MG/DL Creatinine 0.58 MG/DL Random Glucose 98 MG/DL Total Protein 6.8 GM/DL Albumin 3.3 GM/DL Calcium Level 8.2 MG/DL Alkaline Phosphatase 60 U/L Aspartate Amino Transf (AST/SGOT) 12 U/L Alanine Aminotransferase (ALT/SGPT) 13 U/L Total Bilirubin 0.2 MG/DL Sodium Level 137 MEQ/L Potassium Level 3.6 MEQ/L Chloride Level 105 MEQ/L Carbon Dioxide Level 24.7 MEQ/L Anion Gap 7 MEQ/L Estimat Glomerular Filtration Rate 118 ML/MIN [facility] Medical Decision Making Medical Screen Exam Complete: Yes Emergency Medical Condition: Yes Medical Record Reviewed: Yes Differential Diagnosis Differential includes viral syndrome, gastroenteritis, Narrative Course White count is normal. Patient was given IV fluids Toradol and Zofran with improvement. She is stable for discharge Diagnosis Primary Impression: Viral syndrome Scripts Ondansetron Odt (Zofran Odt) 4 Mg Tab 4 MG SL Q6HR Y for Nausea/Vomiting, #10 TAB 0 Refills Prov: Theo Hurt MD 10/01/17 Disposition: 01 DISCHARGE HOME Condition: Stable Theo Hurt MD Oct 01, 2017 13:33
[2017-10-01 13:41] LABS: AUTOMATED NEUTROPHIL # 4.3 TH/MM3 (1.8-7.7); BASOPHIL % 0.6 % (0.0-2.0); EOSINOPHIL # 0.1 TH/MM3 (0-0.4); EOSINOPHIL % 1.8 % (0.0-4.0); HEMATOCRIT 40.7 % (35.0-46.0); HEMOGLOBIN 13.7 GM/DL (11.6-15.3); LYMPHOCYTE # 1.4 TH/MM3 (1.0-4.8); MEAN CELL VOLUME 88.5 FL (80.0-100.0); MEAN CORPUSCULAR HEMOGLOBIN 29.7 PG (27.0-34.0); MEAN CORPUSCULAR HGB CONC 33.6 % (32.0-36.0); MEAN PLATELET VOLUME 8.8 FL (7.0-11.0); MONO % 8.5 % (0.0-8.0); MONOCYTE # 0.5 TH/MM3 (0-0.9); NEUT % 67.1 % (16.0-70.0); PLATELET COUNT 220 TH/MM3 (150-450); WHITE BLOOD COUNT 6.3 TH/MM3 (4.0-11.0)
[2017-10-01 13:50] LABS: CHLORIDE 105 MEQ/L (98-107); SODIUM (NA) 137 MEQ/L (136-145)
[2017-10-01 13:53] LABS: CALCIUM 8.2 MG/DL (8.5-10.1)
[2017-10-01 13:54] LABS: ALBUMIN 3.3 GM/DL (3.4-5.0); BICARBONATE 24.7 MEQ/L (21.0-32.0); BLOOD UREA NITROGEN 6 MG/DL (7-18); GLUCOSE,RANDOM 98 MG/DL (74-106)
[2017-10-01 13:57] LABS: ALT (GPT) 13 U/L (10-53); AST (GOT) 12 U/L (15-37); CREATININE 0.58 MG/DL (0.50-1.00); GLOMERULAR FILTRATION RATE 118 ML/MIN (>89)
[2017-10-01 13:58] LABS: TOTAL BILIRUBIN ADULT 0.2 MG/DL (0.2-1.0); TOTAL PROTEIN 6.8 GM/DL (6.4-8.2)
[2017-10-01 14:00] LABS: ALKALINE PHOSPHATASE 60 U/L (45-117)
[2017-10-01] MEDS ORDERED: ZOFR4TAB3 SL (14:20)
[2017-10-01 15:19] VITALS: BP 119/62
== END 2017-10-01 15:33 | disposition home or self-care (01) ==
LOC: PHED 13:04
DX: B34.9 Viral infection, unspecified (principal); F31.9 Bipolar disorder, unspecified; J44.9 Chronic obstructive pulmonary disease, unspecified; F17.210 Nicotine dependence, cigarettes, uncomplicated
CPT/HCPCS: 80053; 84703; 85025; 96361; 96374; 96375; 99284; J0780; J1885; J7030

== ENCOUNTER 2017-10-31 10:27 | Emergency (ER) | payer SELFPAY ==
[~2017-10-31 10:27] MED LIST changes: -CIPR-9 PO; -NORC5TAB PO; +ZOFR4TAB3 SL
[2017-10-31 10:41] VITALS: BP 136/98; PULSE 93; RESP 16; TEMP 99; O2SAT 99
[2017-10-31 11:19] LABS: BILIRUBIN, URINE NEG (NEG); BLOOD, URINE NEG (NEG); GLUCOSE,URINE NEG (NEG); KETONE, URINE NEG (NEG); MUCUS URINE FEW /lpf (OCC); NITRITE,URINE NEG (NEG); PH, URINE 5.5 (5.0-8.5); SQUAMOUS EPITHELIAL CELL URINE 5 /hpf (0-5); URINE COLOR YELLOW (YELLW/STRAW); URINE LEUKOCYTE ESTERASE MOD (NEG)
[2017-10-31 11:38] LABS: AUTOMATED NEUTROPHIL # 8.2 TH/MM3 (1.8-7.7); BASOPHIL # 0.1 TH/MM3 (0-0.2); BASOPHIL % 0.9 % (0.0-2.0); EOSINOPHIL # 0.1 TH/MM3 (0-0.4); EOSINOPHIL % 1.2 % (0.0-4.0); HEMATOCRIT 41.6 % (35.0-46.0); HEMOGLOBIN 13.8 GM/DL (11.6-15.3); LYMPH % 24.6 % (9.0-44.0); MEAN CELL VOLUME 89.2 FL (80.0-100.0); MEAN CORPUSCULAR HEMOGLOBIN 29.7 PG (27.0-34.0); MEAN CORPUSCULAR HGB CONC 33.2 % (32.0-36.0); MEAN PLATELET VOLUME 9.1 FL (7.0-11.0); MONO % 5.4 % (0.0-8.0); MONOCYTE # 0.7 TH/MM3 (0-0.9); NEUT % 67.9 % (16.0-70.0); PLATELET COUNT 244 TH/MM3 (150-450); RED BLOOD COUNT 4.66 MIL/MM3 (4.00-5.30); RED CELL DISTRIBUTION WIDTH 14.1 % (11.6-17.2); WHITE BLOOD COUNT 12.1 TH/MM3 (4.0-11.0)
[2017-10-31 12:06] LABS: ALBUMIN 3.5 GM/DL (3.4-5.0); AST (GOT) 19 U/L (15-37); BICARBONATE 21.4 MEQ/L (21.0-32.0); BLOOD UREA NITROGEN 10 MG/DL (7-18); CALCIUM 8.1 MG/DL (8.5-10.1); CHLORIDE 109 MEQ/L (98-107); CREATININE 0.69 MG/DL (0.50-1.00); GLOMERULAR FILTRATION RATE 97 ML/MIN (>89); GLUCOSE,RANDOM 86 MG/DL (74-106); SODIUM (NA) 139 MEQ/L (136-145)
[2017-10-31 12:07] LABS: ALT (GPT) 21 U/L (10-53)
[2017-10-31 12:09] LABS: ALKALINE PHOSPHATASE 63 U/L (45-117); TOTAL BILIRUBIN ADULT 0.5 MG/DL (0.2-1.0)
[2017-10-31] MEDS ORDERED: SODIUM CHLOR 0.9% 1000 ML INJ 1,000 ML IV ONE (13:56)
[2017-10-31 14:00] VITALS: BP 169/103; PULSE 80; RESP 18; O2SAT 100
[2017-10-31] MEDS ORDERED: LIDOCAINE VISCOUS 2% SOLN 15 ML UDC PO ONE (14:00)
[2017-10-31] MEDS ORDERED: PANTOPRAZOLE SODIUM 40 MG VIAL IVP ONE (14:00)
[2017-10-31] MEDS ORDERED: KETOROLAC TROMETHAMINE 30 MG/ML (IVP) VIAL IV PUSH ONE (14:00)
[2017-10-31] MEDS ORDERED: ALUMINUM/MAGNESIUM/SIMETH 30 ML CUP PO ONE (14:00)
--- NOTE | 2017-10-31 14:00 | PD ---
HPI Chief Complaint: GI Complaint Time Seen by Provider: 13:49 Travel History International Travel<30 days: No Contact w/Intl Traveler<30days: No Traveled to known affect area: No History of Present Illness HPI 37-year-old female presents for evaluation of left upper quadrant/left flank pain. Symptoms started 2-3 days ago. The pain is a sharp pain which comes and goes with no obvious aggravating or alleviating factors. She has never had pain like this before. She denies nausea, vomiting, constipation. She has had loose stools. She reports that she had dysuria a few days ago but none since. Denies vaginal bleeding or discharge. Denies fevers or chills. Denies history of peptic ulcer disease. She does report a history of cholecystectomy and tubal ligation. No other complaints at this time. PFSH Past Medical History Hx Anticoagulant Therapy: No Arthritis: No Asthma: No Autoimmune Disease: No Blood Disorders: No Bipolar Disorder: Yes Anxiety: Yes Depression: No Heart Rhythm Problems: No Cancer: No Cardiovascular Problems: No High Cholesterol: No Chemotherapy: No Chest Pain: No Congestive Heart Failure: No COPD: Yes Cerebrovascular Accident: No Diabetes: No Diminished Hearing: No Endocrine: No Gastrointestinal Disorders: Yes GERD: No Glaucoma: No Genitourinary: No Headaches: No Hepatitis: No Hiatal Hernia: No Immune Disorder: No Implanted Vascular Access Dvce: No Kidney Stones: No Musculoskeletal: No Neurologic: No Psychiatric: Yes Reproductive: Yes Respiratory: Yes (COPD) Migraines: No Myocardial Infarction: No Radiation Therapy: No Renal Failure: No Seizures: No Sickle Cell Disease: No Sleep Apnea: No Thyroid Disease: No Ulcer: No Menopausal: No : 10 Para: 7 Miscarriage: 1 : 1 Dilation and Curettage (D&C): Yes Tubal Ligation: Yes Past Surgical History Abdominal Surgery: Yes AICD: No Appendectomy: No Arteriovenous Shunt: No Cardiac Surgery: No Cholecystectomy: Yes Ear Surgery: No Endocrine Surgery: No Eye Surgery: No Genitourinary Surgery: No Gynecologic Surgery: Yes (D&C AFTER MISCARRIAGE) Insulin Pump: No Joint Replacement: No Neurologic Surgery: No Oral Surgery: No Pacemaker: No Thoracic Surgery: No Other Surgery: Yes Social History Alcohol Use: Yes ("OCCASIONALLY") Tobacco Use: Yes (1 PPD) Substance Use: No Allergies-Medications (Allergen,Severity, Reaction): Coded Allergies: adhesive (Unverified Adverse Reaction, Unknown, PT STATES NOT TRUE, 10/01/17 ) Reported Meds & Prescriptions Reported Meds & Active Scripts Active Bactrim DS (Sulfamethoxazole-Trimethoprim) 800-160 Mg Tab 1 Tab PO BID Review of Systems Except as stated in HPI: all other systems reviewed are Neg Physical Exam Narrative GENERAL: Well-developed well-nourished female no acute distress SKIN: Warm and dry. HEAD: Atraumatic. Normocephalic. EYES: Pupils equal and round. No scleral icterus. No injection or drainage. ENT: No nasal bleeding or discharge. Mucous membranes pink and moist. NECK: Trachea midline. No JVD. CARDIOVASCULAR: Regular rate and rhythm. No murmur appreciated. RESPIRATORY: No accessory muscle use. Clear to auscultation. Breath sounds equal bilaterally. GASTROINTESTINAL: Abdomen soft, tender to palpation the left upper quadrant/ left flank. There is no guarding. There is no tenderness to palpation in the lower quadrants. MUSCULOSKELETAL: No obvious deformities. No clubbing. No cyanosis. No edema. NEUROLOGICAL: Awake and alert. No obvious cranial nerve deficits. Motor grossly within normal limits. Normal speech. Data Data Last Documented VS Vital Signs Date Time Temp Pulse Resp B/P (MAP) Pulse Ox O2 Delivery O2 Flow Rate FiO2 10/31/17 14:00 18 10/31/17 14:00 80 169/103 (125) 100 Room Air 10/31/17 10:41 99.0 Orders Orders Complete Blood Count With Diff (10/31/17 10:43) Comprehensive Metabolic Panel (10/31/17 10:43) Urinalysis - C+S If Indicated (10/31/17 10:43) Ed Urine Pregnancytest Poc (10/31/17 10:43) Iv Access Insert/Monitor (10/31/17 10:43) Oxygen Administration (10/31/17 10:43) Oximetry (10/31/17 10:43) Lipase (10/31/17 10:43) Urine Culture (10/31/17 10:56) Ct Abd/Pel W/O Iv Contrast (10/31/17 13:56) Ketorolac Inj (Toradol Inj) (10/31/17 14:00) Sodium Chlor 0.9% 1000 Ml Inj (Ns 1000 M (10/31/17 13:56) Pantoprazole Inj (Protonix Inj) (10/31/17 14:00) Al-Mag Hy-Si 40-40-4 Mg/Ml Liq (Mag-Al P (10/31/17 14:00) Lidocaine 2% Viscous (Xylocaine 2% Visco (10/31/17 14:00) Ed Discharge Order (10/31/17 14:43) Sulfamet-Trimeth Ds 800-160 Mg (Bactrim (10/31/17 14:45) Labs Laboratory Tests Test 10/31/17 10:56 White Blood Count 12.1 TH/MM3 Red Blood Count 4.66 MIL/MM3 Hemoglobin 13.8 GM/DL Hematocrit 41.6 % Mean Corpuscular Volume 89.2 FL Mean Corpuscular Hemoglobin 29.7 PG Mean Corpuscular Hemoglobin Concent 33.2 % Red Cell Distribution Width 14.1 % Platelet Count 244 TH/MM3 Mean Platelet Volume 9.1 FL Neutrophils (%) (Auto) 67.9 % Lymphocytes (%) (Auto) 24.6 % Monocytes (%) (Auto) 5.4 % Eosinophils (%) (Auto) 1.2 % Basophils (%) (Auto) 0.9 % Neutrophils # (Auto) 8.2 TH/MM3 Lymphocytes # (Auto) 3.0 TH/MM3 Monocytes # (Auto) 0.7 TH/MM3 Eosinophils # (Auto) 0.1 TH/MM3 Basophils # (Auto) 0.1 TH/MM3 CBC Comment DIFF FINAL Differential Comment Urine Color YELLOW Urine Turbidity CLEAR Urine pH 5.5 Urine Specific [place] 1.024 Urine Protein TRACE mg/dL Urine Glucose (UA) NEG mg/dL Urine Ketones NEG mg/dL Urine Occult Blood NEG Urine Nitrite NEG Urine Bilirubin NEG Urine Urobilinogen LESS THAN 2.0 MG/DL Urine Leukocyte Esterase MOD Urine RBC 5 /hpf Urine WBC 13 /hpf Urine Squamous Epithelial Cells 5 /hpf Urine Mucus FEW /lpf Microscopic Urinalysis Comment CULTURE INDICATED Blood Urea Nitrogen 10 MG/DL Creatinine 0.69 MG/DL Random Glucose 86 MG/DL Total Protein 7.0 GM/DL Albumin 3.5 GM/DL Calcium Level 8.1 MG/DL Alkaline Phosphatase 63 U/L Aspartate Amino Transf (AST/SGOT) 19 U/L Alanine Aminotransferase (ALT/SGPT) 21 U/L Total Bilirubin 0.5 MG/DL Sodium Level 139 MEQ/L Potassium Level 3.9 MEQ/L Chloride Level 109 MEQ/L Carbon Dioxide Level 21.4 MEQ/L Anion Gap 9 MEQ/L Estimat Glomerular Filtration Rate 97 ML/MIN Lipase 137 U/L MDM Medical Decision Making Medical Screen Exam Complete: Yes Emergency Medical Condition: Yes Medical Record Reviewed: Yes Differential Diagnosis Gastritis, peptic ulcer disease, pyelonephritis, ureteral stone, hydronephrosis , pancreatitis Narrative Course Lab work, CT abdomen and pelvis, urinalysis have been ordered. The patient was given IV fluids, Toradol, Protonix, GI cocktail. Lab work has been reviewed. WBC count is 12.1, CMP is essentially unremarkable , CT abdomen and pelvis is unremarkable, urinalysis reveals 13 WBCs, 5 RBCs, culture pending. Given the patient's history of dysuria, flank pain, she will be treated for possible pyelonephritis with Bactrim pending culture results. Another etiology of her pain could be peptic ulcer disease and I have recommended that she avoid [id number] NSAIDs and follow-up with primary care physician if symptoms persist. She is stable for discharge. Diagnosis Primary Impression: Flank pain Additional Impression: UTI (urinary tract infection) Additional Instructions: Medication as prescribed. Stay well hydrated. Avoid tobacco products. Avoid ibuprofen/Advil/Aleve/naproxen products. Follow-up with primary care physician and return for any emergent medical conditions. Med/Other Pt SpecificInfo: Prescription(s) given Scripts Sulfamethoxazole-Trimethoprim (Bactrim DS) 800-160 Mg Tab 1 TAB PO BID for Infection, #14 TAB 0 Refills Prov: Yeison Jimenez MD 10/31/17 Disposition: DISCHARGE HOME Condition: Stable Giuliano Alcantara Oct 31, 2017 14:00
--- NOTE | 2017-10-31 14:38 | RADRPT ---
EXAM DATE/TIME: 10/31/2017 14:21 [facility] COMPARISON: No previous studies available for comparison. INDICATIONS : Left upper abdominal pain radiating posteriorly. ORAL CONTRAST: No oral contrast ingested. RADIATION DOSE: 10.42 CTDIvol (mGy) MEDICAL HISTORY : Hypertension. Chronic obstructive pulmonary disease. SURGICAL HISTORY : D&C, Tubal ENCOUNTER: Initial ACUITY: 1 day PAIN SCALE: 7/10 LOCATION: Left TECHNIQUE: Renal colic protocol. Volumetric scanning of the abdomen and pelvis was performed. Using automated exposure control and adjustment of the mA and/or kV according to patient size, radiation dose was kep t as low as reasonably achievable to obtain optimal diagnostic quality images. DICOM format image da ta is available electronically for review and comparison. FINDINGS: Right side: No evidence of hydronephrosis. No calcified stones in the collecting system or along the course of t he right ureter. Left side: No evidence of hydronephrosis. No calcified stones in the collecting system or along the course of t he right ureter. Bladder: No calcifications within the lumen. Mild distention. Other: Anteverted uterus. Bilateral low density areas in the adnexa measuring up to 2.4 cm characteristic o f bilateral ovarian cysts. No evidence of free fluid in the pelvis. The gallbladder is not identifi ed. Mild left lumbar scoliosis. CONCLUSION: Negative renal colic CT. Shahram Carolina MD on October 31, 2017 at 14:33 Board Certified Radiologist. This report was verified electronically.
[2017-10-31] MEDS ORDERED: BACT800T5 PO (14:40)
[2017-10-31] MEDS ORDERED: SULFAMETHOXAZOLE-TRIMETHOPRIM DS 800-160 MG TAB PO ONE (14:45)
--- NOTE | 2017-10-31 14:54 | PD ---
Data Data Last Documented VS Vital Signs Date Time Temp Pulse Resp B/P (MAP) Pulse Ox O2 Delivery O2 Flow Rate FiO2 10/31/17 14:00 18 10/31/17 14:00 80 169/103 (125) 100 Room Air 10/31/17 10:41 99.0 Orders Orders Complete Blood Count With Diff (10/31/17 10:43) Comprehensive Metabolic Panel (10/31/17 10:43) Urinalysis - C+S If Indicated (10/31/17 10:43) Ed Urine Pregnancytest Poc (10/31/17 10:43) Iv Access Insert/Monitor (10/31/17 10:43) Oxygen Administration (10/31/17 10:43) Oximetry (10/31/17 10:43) Lipase (10/31/17 10:43) Urine Culture (10/31/17 10:56) Ct Abd/Pel W/O Iv Contrast (10/31/17 13:56) Ketorolac Inj (Toradol Inj) (10/31/17 14:00) Sodium Chlor 0.9% 1000 Ml Inj (Ns 1000 M (10/31/17 13:56) Pantoprazole Inj (Protonix Inj) (10/31/17 14:00) Al-Mag Hy-Si 40-40-4 Mg/Ml Liq (Mag-Al P (10/31/17 14:00) Lidocaine 2% Viscous (Xylocaine 2% Visco (10/31/17 14:00) Ed Discharge Order (10/31/17 14:43) Sulfamet-Trimeth Ds 800-160 Mg (Bactrim (10/31/17 14:45) Labs Laboratory Tests Test 10/31/17 10:56 White Blood Count 12.1 TH/MM3 Red Blood Count 4.66 MIL/MM3 Hemoglobin 13.8 GM/DL Hematocrit 41.6 % Mean Corpuscular Volume 89.2 FL Mean Corpuscular Hemoglobin 29.7 PG Mean Corpuscular Hemoglobin Concent 33.2 % Red Cell Distribution Width 14.1 % Platelet Count 244 TH/MM3 Mean Platelet Volume 9.1 FL Neutrophils (%) (Auto) 67.9 % Lymphocytes (%) (Auto) 24.6 % Monocytes (%) (Auto) 5.4 % Eosinophils (%) (Auto) 1.2 % Basophils (%) (Auto) 0.9 % Neutrophils # (Auto) 8.2 TH/MM3 Lymphocytes # (Auto) 3.0 TH/MM3 Monocytes # (Auto) 0.7 TH/MM3 Eosinophils # (Auto) 0.1 TH/MM3 Basophils # (Auto) 0.1 TH/MM3 CBC Comment DIFF FINAL Differential Comment Urine Color YELLOW Urine Turbidity CLEAR Urine pH 5.5 Urine Specific [place] 1.024 Urine Protein TRACE mg/dL Urine Glucose (UA) NEG mg/dL Urine Ketones NEG mg/dL Urine Occult Blood NEG Urine Nitrite NEG Urine Bilirubin NEG Urine Urobilinogen LESS THAN 2.0 MG/DL Urine Leukocyte Esterase MOD Urine RBC 5 /hpf Urine WBC 13 /hpf Urine Squamous Epithelial Cells 5 /hpf Urine Mucus FEW /lpf Microscopic Urinalysis Comment CULTURE INDICATED Blood Urea Nitrogen 10 MG/DL Creatinine 0.69 MG/DL Random Glucose 86 MG/DL Total Protein 7.0 GM/DL Albumin 3.5 GM/DL Calcium Level 8.1 MG/DL Alkaline Phosphatase 63 U/L Aspartate Amino Transf (AST/SGOT) 19 U/L Alanine Aminotransferase (ALT/SGPT) 21 U/L Total Bilirubin 0.5 MG/DL Sodium Level 139 MEQ/L Potassium Level 3.9 MEQ/L Chloride Level 109 MEQ/L Carbon Dioxide Level 21.4 MEQ/L Anion Gap 9 MEQ/L Estimat Glomerular Filtration Rate 97 ML/MIN Lipase 137 U/L MDM Supervised Visit with JESUS: Yes Narrative Course I, Dr. Jimenez, have reviewed the advance practice practitioner's documentation and am in agreement, met with the patient face to face, made the diagnosis, and the medical decision making was done by me. *My assessment and Findings: Patient arrived with flank pain. She had extensive workup which I have reviewed with her in detail. Labs are normal and CT scan is negative for stone or other problem. Urine does show 13 white cells and leukocyte esterase. She is covered with antibiotics. Recommend primary care follow-up. She looks comfortable at this point. Diagnosis Primary Impression: Flank pain Additional Impression: UTI (urinary tract infection) Additional Instruction: Medication as prescribed. Stay well hydrated. Avoid tobacco products. Avoid ibuprofen/Advil/Aleve/naproxen products. Follow-up with primary care physician and return for any emergent medical conditions. Scripts Sulfamethoxazole-Trimethoprim (Bactrim DS) 800-160 Mg Tab 1 TAB PO BID for Infection, #14 TAB 0 Refills Prov: Yeison Jimenez MD 10/31/17 Disposition: 01 DISCHARGE HOME Condition: Stable Yeison Jimenez MD Oct 31, 2017 14:54
[2017-10-31 15:30] VITALS: BP 150/95; PULSE 82; RESP 16; O2SAT 100
== END 2017-10-31 15:46 | disposition home or self-care (01) ==
LOC: NEPD 10:27
DX: N39.0 Urinary tract infection, site not specified (principal); F31.9 Bipolar disorder, unspecified; F41.9 Anxiety disorder, unspecified; J44.9 Chronic obstructive pulmonary disease, unspecified; F17.200 Nicotine dependence, unspecified, uncomplicated
CPT/HCPCS: 74176; 80053; 81001; 83690; 84703; 85025; 87086; 96361; 96374; 96375; 99284; C9113; J1885; J7030

== ENCOUNTER 2018-01-08 23:07 | Emergency (ER) | payer OTHER ==
[~2018-01-08] VITALS: Ht 157.5 cm; Wt 65.0 kg
[~2018-01-08 23:07] MED LIST changes: +BACT800T5 PO; -ZOFR4TAB3 SL
[2018-01-08] MEDS ORDERED: CLON0.1T PO (23:14)
[2018-01-08] MEDS ORDERED: LITH8SOL2 (23:14)
[2018-01-08] MEDS ORDERED: LITH150C PO (23:14)
[2018-01-08] MEDS ORDERED: GABA300C5 PO (23:14)
[2018-01-08 23:15] VITALS: BP 141/88; PULSE 128; RESP 18; TEMP 98.1; O2SAT 98
[2018-01-09 00:51] LABS: AUTOMATED NEUTROPHIL # 7.4 TH/MM3 (1.8-7.7); BASOPHIL # 0.1 TH/MM3 (0-0.2); BASOPHIL % 1.1 % (0.0-2.0); EOSINOPHIL % 0.5 % (0.0-4.0); HEMATOCRIT 37.7 % (35.0-46.0); LYMPHOCYTE # 1.2 TH/MM3 (1.0-4.8); MEAN CELL VOLUME 87.9 FL (80.0-100.0); MEAN CORPUSCULAR HEMOGLOBIN 30.2 PG (27.0-34.0); MEAN CORPUSCULAR HGB CONC 34.4 % (32.0-36.0); MONO % 4.6 % (0.0-8.0); MONOCYTE # 0.4 TH/MM3 (0-0.9); NEUT % 80.8 % (16.0-70.0); PLATELET COUNT 246 TH/MM3 (150-450); RED BLOOD COUNT 4.29 MIL/MM3 (4.00-5.30); WHITE BLOOD COUNT 9.2 TH/MM3 (4.0-11.0)
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
[2018-01-09] MEDS ORDERED: SODIUM CHLOR 0.9% 1000 ML INJ 1,000 ML IV ONE (01:00)
[2018-01-09 01:05] VITALS: BP 110/78; PULSE 97; RESP 18; O2SAT 98
[2018-01-09 01:07] LABS: ALBUMIN 3.5 GM/DL (3.4-5.0); ALT (GPT) 17 U/L (10-53); AST (GOT) 16 U/L (15-37); BLOOD UREA NITROGEN 8 MG/DL (7-18); CALCIUM 8.5 MG/DL (8.5-10.1); CHLORIDE 109 MEQ/L (98-107); CREATININE 0.73 MG/DL (0.50-1.00); GLOMERULAR FILTRATION RATE 91 ML/MIN (>89); GLUCOSE,RANDOM 107 MG/DL (74-106); SODIUM (NA) 142 MEQ/L (136-145)
[2018-01-09 01:17] LABS: ALKALINE PHOSPHATASE 77 U/L (45-117); TOTAL BILIRUBIN ADULT 0.2 MG/DL (0.2-1.0); TOTAL PROTEIN 7.5 GM/DL (6.4-8.2)
[2018-01-09 01:18] LABS: ACETAMINOPHEN LESS THAN 2.0 MCG/ML (10.0-30.0)
[2018-01-09] MEDS ORDERED: IOHEXOL 350 MG/ML 10 ML VIAL (for RAD DIAG) IVCONTRAST ONE (01:23)
--- NOTE | 2018-01-09 01:37 | RADRPT ---
EXAM DATE: 01/09/2018 1:26 AM EDT AGE/SEX: 37 years / Female INDICATIONS: Trauma; abdomen pain. CLINICAL DATA: This is the patient's initial encounter. Patient reports that signs and symptoms have been present for 1 day and indicates a pain score of 4/10. MEDICAL/SURGICAL HISTORY: Hypertension. Cholecystectomy. Tubal ligation. ORAL CONTRAST: No oral contrast ingested. RADIATION DOSE: 6.64 CTDI (mGy) COMPARISON: No prior exams available for comparison. TECHNIQUE: Multiple contiguous axial images were obtained through the abdomen and pelvis following b olus infusion of 75 ml Omnipaque 350 (iohexol) nonionic water-soluble contrast as a single exam dos e. No oral contrast ingested. Using automated exposure control and adjustment of the mA and/or kV ac cording to patient size, the radiation dose was kept as low as reasonably achievable to obtain optima l diagnostic quality images. FINDINGS: Lower Lungs: The visualized lower lungs are clear. Liver: The liver has a homogeneous density without space-occupying lesion. There is no dilation of th e biliary tree. Spleen: Homogeneous density without enlargement. Pancreas: Unremarkable without mass or calcification. Kidneys: Normal in size and shape. No evidence of mass or hydronephrosis. Adrenal Glands: Unremarkable. Aorta: The aorta and proximal iliac vessels are grossly unremarkable without aneurysmal dilation. Bowel/Mesentery: No evidence of bowel dilatation. No free air or free fluid. Appendix within normal limits. Abdominal Wall: Intact. Retroperitoneum: No evidence of adenopathy in the retrocrural, para-aortic, or deep pelvic regions. Bladder: Contours are smooth. Reproductive Organs: No abnormal masses or calcifications seen. Inguinal: The inguinal region is unremarkable without evidence of adenopathy. Bony Structures: Unremarkable. CONCLUSION: No acute findings in the abdomen and pelvis. Electronically signed by: Edward Mike MD 01/09/2018 1:36 AM EDT
== END 2018-01-09 03:42 ==
LOC: NEPC 23:07
DX: R10.84 Generalized abdominal pain (principal); F14.10 Cocaine abuse, uncomplicated; K29.20 Alcoholic gastritis without bleeding; J44.9 Chronic obstructive pulmonary disease, unspecified; Z72.0 Tobacco use; Z72.89 Other problems related to lifestyle
CPT/HCPCS: 74177; 80053; 80307; 84443; 84703; 85025; 96360; 99284; J7030; Q9967

== ENCOUNTER 2018-01-17 02:51 | Emergency (ER) | payer SELFPAY ==
[~2018-01-17] VITALS: Ht 157.5 cm; Wt 64.6 kg
[~2018-01-17 02:51] MED LIST changes: -BACT800T5 PO; +CLON0.1T PO; +GABA300C5 PO; +LITH150C PO
[2018-01-17] MEDS ORDERED: IOHEXOL 350 MG/ML 10 ML VIAL (for RAD DIAG) IVCONTRAST ONE (02:52)
[2018-01-17 02:53] VITALS: BP 133/71; PULSE 88; RESP 18; TEMP 97.5; O2SAT 97
[2018-01-17 03:15] VITALS: BP 133/71; PULSE 88; RESP 24; O2SAT 97
[2018-01-17 03:19] VITALS: O2SAT 97
[2018-01-17] MEDS ORDERED: ZOFR4TAB PO (03:24)
[2018-01-17] MEDS ORDERED: CIPR-9 PO (03:24)
[2018-01-17] MEDS ORDERED: TUMS500C CHEW (03:24)
[2018-01-17] MEDS ORDERED: TRAM50TA PO (03:24)
[2018-01-17 03:46] LABS: BILIRUBIN, URINE NEG (NEG); BLOOD, URINE NEG (NEG); GLUCOSE,URINE NEG (NEG); KETONE, URINE NEG (NEG); NITRITE,URINE NEG (NEG); URINE COLOR YELLOW (YELLW/STRAW); URINE LEUKOCYTE ESTERASE NEG (NEG)
[2018-01-17 03:51] LABS: AUTOMATED NEUTROPHIL # 4.9 TH/MM3 (1.8-7.7); BASOPHIL % 0.6 % (0.0-2.0); EOSINOPHIL # 0.3 TH/MM3 (0-0.4); EOSINOPHIL % 4.6 % (0.0-4.0); HEMATOCRIT 32.7 % (35.0-46.0); HEMOGLOBIN 10.9 GM/DL (11.6-15.3); LYMPH % 22.5 % (9.0-44.0); LYMPHOCYTE # 1.6 TH/MM3 (1.0-4.8); MEAN CORPUSCULAR HEMOGLOBIN 30.1 PG (27.0-34.0); MEAN CORPUSCULAR HGB CONC 33.5 % (32.0-36.0); MEAN PLATELET VOLUME 8.6 FL (7.0-11.0); MONO % 5.7 % (0.0-8.0); MONOCYTE # 0.4 TH/MM3 (0-0.9); NEUT % 66.6 % (16.0-70.0); PLATELET COUNT 347 TH/MM3 (150-450); RED BLOOD COUNT 3.63 MIL/MM3 (4.00-5.30); RED CELL DISTRIBUTION WIDTH 13.5 % (11.6-17.2); WHITE BLOOD COUNT 7.2 TH/MM3 (4.0-11.0)
[2018-01-17 03:56] LABS: BACTERIA, URINE RARE /hpf; RBC, URINE 0-3 /hpf (0-3); SQUAMOUS EPITHELIAL CELL URINE 0-5 /hpf (0-5); WHITE BLOOD CELL CLUMPS MOD
[2018-01-17 03:57] LABS: CHLORIDE 102 MEQ/L (98-107); SODIUM (NA) 137 MEQ/L (136-145)
[2018-01-17 04:00] LABS: CALCIUM 9.2 MG/DL (8.5-10.1)
[2018-01-17 04:01] LABS: ALBUMIN 2.9 GM/DL (3.4-5.0); BICARBONATE 28.8 MEQ/L (21.0-32.0); BLOOD UREA NITROGEN 10 MG/DL (7-18); GLUCOSE,RANDOM 96 MG/DL (74-106)
[2018-01-17 04:03] LABS: ALT (GPT) 21 U/L (10-53); AST (GOT) 12 U/L (15-37)
[2018-01-17 04:04] LABS: CREATININE 0.78 MG/DL (0.50-1.00); GLOMERULAR FILTRATION RATE 84 ML/MIN (>89)
[2018-01-17 04:05] LABS: TOTAL BILIRUBIN ADULT 0.2 MG/DL (0.2-1.0); TOTAL PROTEIN 7.4 GM/DL (6.4-8.2)
[2018-01-17 04:06] LABS: ALKALINE PHOSPHATASE 84 U/L (45-117)
--- NOTE | 2018-01-17 04:44 | PD ---
HPI Chief Complaint: Abdominal Pain Time Seen by Provider: 04:22 Travel History International Travel<30 days: No Contact w/Intl Traveler<30days: No Traveled to known affect area: No History of Present Illness HPI The patient is a 37-year-old female that has had abdominal pain for 3 weeks. Until several days ago the abdominal pain was just a dull mild pain mostly in the right upper quadrant. She has had a cholecystectomy. She is also had a tubal ligation and she is not . In the last day or 2 the pain has increased to a 10/10 and she has experienced abdominal swelling. She is an alcoholic and has been going to [facility] for alcohol. She does have a history of bipolar disorder as well. She does have a history of cocaine abuse which he states her last cocaine was a week ago and she did claims not to use it very often. She had a CAT scan last week which was essentially normal but she did not have any of the swelling and the severe pain at that time. She has had a bladder infection. The patient states she gets nauseated when the pain gets severe but she has not had any vomiting. PFSH Past Medical History Hx Anticoagulant Therapy: No Arthritis: No Asthma: No Autoimmune Disease: No Blood Disorders: No Bipolar Disorder: Yes Anxiety: Yes Depression: No Heart Rhythm Problems: No Cancer: No Cardiovascular Problems: No High Cholesterol: No Chemotherapy: No Chest Pain: No Congestive Heart Failure: No COPD: Yes Cerebrovascular Accident: No Diabetes: No Diminished Hearing: No Endocrine: No Gastrointestinal Disorders: Yes (alcoholic gastritis) GERD: No Glaucoma: No Genitourinary: No Headaches: No Hepatitis: No Hiatal Hernia: No Hypertension: Yes Immune Disorder: No Implanted Vascular Access Dvce: No Kidney Stones: No Musculoskeletal: No Neurologic: No Psychiatric: Yes Reproductive: Yes Respiratory: Yes (COPD; PT DENIES 10/31/17) Migraines: No Myocardial Infarction: No Radiation Therapy: No Renal Failure: No Seizures: No Sickle Cell Disease: No Sleep Apnea: No Thyroid Disease: No Ulcer: No ?: Not Menopausal: No : 10 Para: 7 Miscarriage: 1 : 1 Dilation and Curettage (D&C): Yes Tubal Ligation: Yes Past Surgical History Abdominal Surgery: Yes AICD: No Appendectomy: No Arteriovenous Shunt: No Cardiac Surgery: No Cholecystectomy: Yes Ear Surgery: No Endocrine Surgery: No Eye Surgery: No Genitourinary Surgery: No Gynecologic Surgery: Yes (D&C AFTER MISCARRIAGE) Insulin Pump: No Joint Replacement: No Neurologic Surgery: No Oral Surgery: Yes (TONGUE/PALATE SURGERY) Pacemaker: No Thoracic Surgery: No Other Surgery: Yes Social History Alcohol Use: Yes ("OCCASIONALLY") Tobacco Use: Yes (1 PPD) Substance Use: No Allergies-Medications (Allergen,Severity, Reaction): Coded Allergies: No Known Allergies (Unverified , 01/17/18) Reported Meds & Prescriptions Reported Meds & Active Scripts Active Reported Tums (Calcium Carbonate (Antacid)) 500 Mg Chew 500 Mg CHEW PRN Zofran (Ondansetron HCl) 4 Mg Tab 4 Mg PO Q8HR PRN Tramadol (Tramadol HCl) 50 Mg Tab 50 Mg PO Q6H PRN Cipro (Ciprofloxacin HCl) 500 Mg Tab 500 Mg PO BID Clonidine (Clonidine HCl) 0.1 Mg Tab 0.1 Mg PO BID Gabapentin 300 Mg Cap 300 Mg PO TID [place] Carbonate 150 Mg Cap 150 Mg PO BID Review of Systems Except as stated in HPI: all other systems reviewed are Neg Physical Exam Narrative GENERAL: The patient is alert, oriented 3 bending over the bed and severe abdominal distress. She points to the right upper quadrant were most of her pain is. Her vital signs are normal except repeat respiratory rate was 24. She appears in no respiratory distress. SKIN: Focused skin assessment warm/dry. No skin rash is seen. HEAD: Atraumatic. Normocephalic. EYES: Pupils equal and round. No scleral icterus. No injection or drainage. ENT: No nasal bleeding or discharge. Mucous membranes pink and moist. NECK: Trachea midline. No JVD. CARDIOVASCULAR: Regular rate and rhythm. No murmur appreciated. RESPIRATORY: No accessory muscle use. Clear to auscultation. Breath sounds equal bilaterally. GASTROINTESTINAL: Abdomen soft, diffuse tenderness particularly in the right upper quadrant is present, diffusely distended. Hepatic and splenic margins not palpable. No guarding or rebound is present. MUSCULOSKELETAL: No obvious deformities. No clubbing. No cyanosis. No edema. NEUROLOGICAL: Awake and alert. No obvious cranial nerve deficits. Motor grossly within normal limits. Normal speech. PSYCHIATRIC: The patient appears extremely anxious; insight and judgment normal. Data Data Last Documented VS Vital Signs Date Time Temp Pulse Resp B/P (MAP) Pulse Ox O2 Delivery O2 Flow Rate FiO2 01/17/18 05:19 81 18 121/72 (88) 98 Room Air 01/17/18 02:53 97.5 Orders Orders Complete Blood Count With Diff (01/17/18 03:16) Comprehensive Metabolic Panel (01/17/18 03:16) Lipase (01/17/18 03:16) Urinalysis - C+S If Indicated (01/17/18 03:16) Iv Access Insert/Monitor (01/17/18 03:16) Ecg Monitoring (01/17/18 03:16) Oximetry (01/17/18 03:16) Ed Urine Pregnancytest Poc (01/17/18 03:16) Urine Culture (01/17/18 03:30) Drug Screen, Random Urine (01/17/18 04:29) Prochlorperazine Inj (Compazine Inj) (01/17/18 04:45) Morphine Inj (Morphine Inj) (01/17/18 04:45) Ct Abd/Pel W Iv Contrast(Rout) (01/17/18 04:46) Iohexol 350 Inj (Omnipaque 350 Inj) (01/17/18 02:52) Labs Laboratory Tests Test 01/17/18 03:30 White Blood Count 7.2 TH/MM3 Red Blood Count 3.63 MIL/MM3 Hemoglobin 10.9 GM/DL Hematocrit 32.7 % Mean Corpuscular Volume 90.0 FL Mean Corpuscular Hemoglobin 30.1 PG Mean Corpuscular Hemoglobin Concent 33.5 % Red Cell Distribution Width 13.5 % Platelet Count 347 TH/MM3 Mean Platelet Volume 8.6 FL Neutrophils (%) (Auto) 66.6 % Lymphocytes (%) (Auto) 22.5 % Monocytes (%) (Auto) 5.7 % Eosinophils (%) (Auto) 4.6 % Basophils (%) (Auto) 0.6 % Neutrophils # (Auto) 4.9 TH/MM3 Lymphocytes # (Auto) 1.6 TH/MM3 Monocytes # (Auto) 0.4 TH/MM3 Eosinophils # (Auto) 0.3 TH/MM3 Basophils # (Auto) 0.0 TH/MM3 CBC Comment DIFF FINAL Differential Comment Urine Color YELLOW Urine Turbidity CLEAR Urine pH 5.0 Urine Specific [place] 1.025 Urine Protein NEG mg/dL Urine Glucose (UA) NEG mg/dL Urine Ketones NEG mg/dL Urine Occult Blood NEG Urine Nitrite NEG Urine Bilirubin NEG Urine Urobilinogen 0.2 MG/DL Urine Leukocyte Esterase NEG Urine RBC 0-3 /hpf Urine WBC 9-14 /hpf Urine WBC Clumps MOD Urine Squamous Epithelial Cells 0-5 /hpf Urine Bacteria RARE /hpf Microscopic Urinalysis Comment CULTURE INDICATED Blood Urea Nitrogen 10 MG/DL Creatinine 0.78 MG/DL Random Glucose 96 MG/DL Total Protein 7.4 GM/DL Albumin 2.9 GM/DL Calcium Level 9.2 MG/DL Alkaline Phosphatase 84 U/L Aspartate Amino Transf (AST/SGOT) 12 U/L Alanine Aminotransferase (ALT/SGPT) 21 U/L Total Bilirubin 0.2 MG/DL Sodium Level 137 MEQ/L Potassium Level 4.2 MEQ/L Chloride Level 102 MEQ/L Carbon Dioxide Level 28.8 MEQ/L Anion Gap 6 MEQ/L Estimat Glomerular Filtration Rate 84 ML/MIN Lipase 72 U/L MDM Medical Decision Making Medical Screen Exam Complete: Yes Emergency Medical Condition: Yes Medical Record Reviewed: Yes Interpretation(s) The CBC is normal except for hemoglobin of 10.9 and hematocrit of 32.7. The complete metabolic profile shows a GFR of 84 but is otherwise normal. The lipase is normal. The urinalysis shows 9-14 white cells with moderate white cell clampings and culture is indicated. Differential Diagnosis Ascites, small bowel obstruction, abdominal pain etiology undetermined, urinary tract infection Narrative Course The patient has abdominal pain etiology undetermined. The CT abdomen/pelvis does not show a large amount of ascites. The patient is to discontinue alcohol and is to take the antibiotics that she was given for urinary tract infection. She apparently went to [facility] emergency department and was prescribed Cipro for a cystitis. She has not taken this medication yet. It is now 0611 and the patient is sleeping comfortably. At this time I have no reason to admit her with normal blood work and a CT scan that is unremarkable. Plan: The patient is to take the tramadol that she already has and take the Cipro. Diagnosis Primary Impression: Abdominal pain Additional Impression: Cystitis Additional Instructions: Take the Cipro as prescribed and the tramadol as prescribed. At this time we cannot find any reason to admit you. Try to find a primary care physician or clinic that will be able to follow you for your medical problems. Med/Other Pt SpecificInfo: No Change to Meds Disposition: 01 DISCHARGE HOME Condition: Marlon Smlal MD Jan 17, 2018 04:44
[2018-01-17] MEDS ORDERED: MORPHINE SULFATE 8 MG/ML INJ IV PUSH ONE (04:45)
[2018-01-17] MEDS ORDERED: PROCHLORPERAZINE INJ 10 MG/2 ML VIAL IV PUSH ONE (04:45)
[2018-01-17 05:19] VITALS: BP 121/72; PULSE 81; RESP 18; O2SAT 98
--- NOTE | 2018-01-17 05:35 | RADRPT ---
EXAM DATE: 01/17/2018 5:10 AM EDT AGE/SEX: 37 years / Female INDICATIONS: Diffuse abdominal pain for 3 weeks. CLINICAL DATA: This is the patient's initial encounter. Patient reports that signs and symptoms have been present for 3 weeks and indicates a pain score of 7/10. MEDICAL/SURGICAL HISTORY: Hypertension. Chronic obstructive pulmonary disease. Cholecystectomy . Tubal ligation. ORAL CONTRAST: No oral contrast ingested. RADIATION DOSE: 9.52 CTDI (mGy) COMPARISON: [facility] [place], CT ABDOMEN & PELVIS W CONTRAST, 01/09/2018. . TECHNIQUE: Multiple contiguous axial images were obtained through the abdomen and pelvis following b olus infusion of 89 ml Omnipaque 350 (iohexol) nonionic water-soluble contrast as a single exam dos e. No oral contrast ingested. Using automated exposure control and adjustment of the mA and/or kV ac cording to patient size, radiation dose was kept as low as reasonably achievable to obtain optimal di agnostic quality images. DICOM format image data is available electronically for review and comparis on. FINDINGS: Lower Lungs: The visualized lower lungs are clear. Liver: The liver has a homogeneous density without space-occupying lesion. There is no dilation of th e biliary tree. Spleen: Homogeneous density without enlargement. Pancreas: Unremarkable without mass or calcification. Kidneys: Normal in size and shape. No evidence of mass or hydronephrosis. Adrenal Glands: Unremarkable. Aorta: The aorta and proximal iliac vessels are grossly unremarkable without aneurysmal dilation. Bowel/Mesentery: No oral contrast was given limiting the sensitivity. The bowel loops are grossly unr emarkable. The cecum and sigmoid colon have a normal configuration. Abdominal Wall: Intact. Retroperitoneum: No evidence of adenopathy in the retrocrural, para-aortic, or deep pelvic regions. Bladder: Contours are smooth. Reproductive Organs: No abnormal masses or calcifications seen. Inguinal: The inguinal region is unremarkable without evidence of adenopathy. Bony Structures: Unremarkable. CONCLUSION: 1. The study remains unremarkable. Electronically signed by: Sathya Angulo MD 01/17/2018 5:34 AM EDT
[2018-01-17 06:46] VITALS: BP 100/61
== END 2018-01-17 06:51 | disposition home or self-care (01) ==
LOC: PHED 02:51
DX: R10.9 Unspecified abdominal pain (principal); N30.90 Cystitis, unspecified without hematuria; R11.0 Nausea; I10 Essential (primary) hypertension; F31.9 Bipolar disorder, unspecified; F41.9 Anxiety disorder, unspecified; F14.10 Cocaine abuse, uncomplicated; F17.210 Nicotine dependence, cigarettes, uncomplicated; Z79.899 Other long term (current) drug therapy
CPT/HCPCS: 74177; 80053; 80307; 81001; 83690; 84703; 85025; 87086; 96374; 96375; 99285; J0780; J2270; Q9967